=== PATIENT | male | born 1930 | race Caucasian/White ===

== ENCOUNTER → 2016-08-29 | Outpatient (CLI) | payer MEDICARE, BC ==
[~2016-08-29] MED LIST: SALINE FLUSH 10ml SYRINGE IVF ONE
== END ==
LOC: NWCC 09:42
PROVIDERS: ATTEND Surgery
DX: I87.313 Chronic venous hypertension (idiopathic) with ulcer of bilateral lower extremity (principal); L97.512 Non-pressure chronic ulcer of other part of right foot with fat layer exposed; L97.522 Non-pressure chronic ulcer of other part of left foot with fat layer exposed; R60.1 Generalized edema; I50.9 Heart failure, unspecified; B96.89 Other specified bacterial agents as the cause of diseases classified elsewhere; I87.2 Venous insufficiency (chronic) (peripheral)
CPT/HCPCS: 29581; 87070; 87075; 87077; 87147; 87186; 87205; A6209; G0463

== ENCOUNTER → 2016-09-05 | Outpatient (CLI) | payer MEDICARE, BC | LOC: NWCC 08:22 | PROVIDERS: ATTEND Surgery | DX: I87.2 Venous insufficiency (chronic) (peripheral) (principal); R60.1 Generalized edema; L97.522 Non-pressure chronic ulcer of other part of left foot with fat layer exposed; L97.512 Non-pressure chronic ulcer of other part of right foot with fat layer exposed; I50.9 Heart failure, unspecified | CPT/HCPCS: 15002; 15275; G0463; Q4172 ==

== ENCOUNTER → 2016-09-12 | Outpatient (CLI) | payer MEDICARE, BC | LOC: NWCC 09:23 | PROVIDERS: ATTEND Surgery | DX: I87.313 Chronic venous hypertension (idiopathic) with ulcer of bilateral lower extremity (principal); L97.522 Non-pressure chronic ulcer of other part of left foot with fat layer exposed; L97.512 Non-pressure chronic ulcer of other part of right foot with fat layer exposed; I87.2 Venous insufficiency (chronic) (peripheral); R60.1 Generalized edema; I50.9 Heart failure, unspecified | CPT/HCPCS: 29581; A6209; G0463 ==

== ENCOUNTER → 2016-09-19 | Outpatient (CLI) | payer MEDICARE, BC | LOC: NWCC 09:18 | PROVIDERS: ATTEND Surgery | DX: I87.313 Chronic venous hypertension (idiopathic) with ulcer of bilateral lower extremity (principal); L97.522 Non-pressure chronic ulcer of other part of left foot with fat layer exposed; L97.512 Non-pressure chronic ulcer of other part of right foot with fat layer exposed; R60.1 Generalized edema; I50.9 Heart failure, unspecified; E66.9 Obesity, unspecified; Z68.36 Body mass index [BMI] 36.0-36.9, adult | CPT/HCPCS: 15004; 15275; 29581; A6207; Q4172 ==

== ENCOUNTER → 2016-09-26 | Outpatient (CLI) | payer MEDICARE, BC | LOC: NWCC 09:48 | PROVIDERS: ATTEND Surgery | DX: I87.313 Chronic venous hypertension (idiopathic) with ulcer of bilateral lower extremity (principal); L97.522 Non-pressure chronic ulcer of other part of left foot with fat layer exposed; L97.512 Non-pressure chronic ulcer of other part of right foot with fat layer exposed; R60.1 Generalized edema; I87.2 Venous insufficiency (chronic) (peripheral); I50.9 Heart failure, unspecified | CPT/HCPCS: 15004; 15275; A6207; G0463; Q4172 ==

== ENCOUNTER → 2016-10-03 | Outpatient (CLI) | payer MEDICARE, BC | LOC: NWCC 08:48 | PROVIDERS: ATTEND Surgery | DX: I87.313 Chronic venous hypertension (idiopathic) with ulcer of bilateral lower extremity (principal); L97.522 Non-pressure chronic ulcer of other part of left foot with fat layer exposed; L97.512 Non-pressure chronic ulcer of other part of right foot with fat layer exposed; R60.1 Generalized edema; I87.2 Venous insufficiency (chronic) (peripheral); I50.9 Heart failure, unspecified | CPT/HCPCS: 15004; 15275; 29581; A6207; G0463; Q4172 ==

== ENCOUNTER → 2016-10-10 | Outpatient (CLI) | payer MEDICARE, BC | LOC: NWCC 09:17 | PROVIDERS: ATTEND Surgery | DX: I87.313 Chronic venous hypertension (idiopathic) with ulcer of bilateral lower extremity (principal); L97.522 Non-pressure chronic ulcer of other part of left foot with fat layer exposed; L97.512 Non-pressure chronic ulcer of other part of right foot with fat layer exposed; R60.1 Generalized edema; I87.2 Venous insufficiency (chronic) (peripheral); I50.9 Heart failure, unspecified | CPT/HCPCS: 15004; 15275; 29581; A6207; G0463; Q4172 ==

== ENCOUNTER → 2016-10-17 | Outpatient (CLI) | payer MEDICARE, BC ==
[~2016-10-17] MED LIST changes: +CALMOSEPTINE OINTMENT 3.5 G PACKET TOP ONE; -SALINE FLUSH 10ml SYRINGE IVF ONE
== END ==
LOC: NWCC 09:51
PROVIDERS: ATTEND Surgery
DX: I87.313 Chronic venous hypertension (idiopathic) with ulcer of bilateral lower extremity (principal); L97.522 Non-pressure chronic ulcer of other part of left foot with fat layer exposed; L97.512 Non-pressure chronic ulcer of other part of right foot with fat layer exposed; R60.1 Generalized edema; I87.2 Venous insufficiency (chronic) (peripheral); I50.9 Heart failure, unspecified
CPT/HCPCS: 29581; A6021; A9270; G0463